=== PATIENT | male | born 1970 | race Two or more races ===

== ENCOUNTER 2025-01-18 00:12 | Emergency (ER) | payer OTHER ==
[~2025-01-18] VITALS: Ht 188 cm; Wt 77.3 kg
[2025-01-18 01:06] LABS: GLUCOMETER DEV NAME(LOC) ER.7; GLUCOSE,POINT OF CARE 227 MG/DL (70-110)
[2025-01-18 01:27] LABS: PLATELET COUNT (AUTO) 286 K/uL (150-450); RED BLOOD CELL COUNT(AUTO) 4.84 MIL/uL (4.50-5.90); RED CELL DISTRIBUTION WIDTH 12.7 % (11.5-14.5); WHITE BLOOD COUNT (AUTO) 7.1 K/uL (4.5-11.0)
[2025-01-18 01:59] LABS: CALCIUM, TOTAL 9.0 mg/dL (8.8-10.5); CREATININE 0.82 mg/dL (0.60-1.30); GLOMERULAR FILTR. RATE CALC > 60 mL/min (>60); GLUCOSE,RANDOM 219 mg/dL (70-110); SODIUM SERUM 137 mmol/L (136-145); UREA NITROGEN, BLOOD 14 mg/dL (7-18)
[2025-01-18 03:42] VITALS: BP 141/78; PULSE 71; RESP 16; TEMP 98.3; O2SAT 97
== END 2025-01-18 03:46 | disposition home or self-care (01) ==
LOC: EMS 00:12
DX: E10.65 Type 1 diabetes mellitus with hyperglycemia (principal); I10 Essential (primary) hypertension; Z88.5 Allergy status to narcotic agent; Z79.4 Long term (current) use of insulin
CPT/HCPCS: 80048; 82962; 85025; 99283